=== PATIENT | female | born 1965 | race Caucasian/White ===

== ENCOUNTER 2018-01-01 11:47 | Emergency (ER) | payer BC ==
--- NOTE | 2018-01-01 12:23 | ED ---
General Adult HPI - General Chief complaint: Shortness of Breath Stated complaint: flu symptoms Time Seen by Provider: 01/01/18 11:56 Source: patient, RN notes reviewed Mode of arrival: ambulatory Limitations: no limitations - History of Present Illness Initial comments: Patient 52-year-old female presenting to the emergency room today with a chief complaint of increased cough congestion over the last few weeks. She does admit to positive sputum production it's been green in color. She states that she's had symptoms similar to this off and on over the last several weeks. She states she was on antibiotics and steroids proximate month ago. She states she woke up on December 21 when she had the flu. Patient does admit to symptoms of diarrhea. She states she still been having some symptoms but feels that the cough congestion has gotten worse. She states that time she's had some chills and bodyaches. Patient admits to a pleuritic-type pain at times feeling short of breath. Patient denies any other complaints or symptoms currently. Patient denies any recent back pain, abdominal pain, nausea or vomiting, numbness or tingling, dysuria or hematuria, constipation or diarrhea, headaches or visual changes, or any other complaints. - Related Data Home Medications Medication Instructions Recorded Confirmed Levothyroxine Sodium [Synthroid] 50 mcg PO DAILY 12/08/14 12/08/14 Norethindrone-Ethinyl Estrad 1 each PO HS 12/08/14 12/08/14 [Ortho-Novum 7-7-7-28 Tablet] Omeprazole [PriLOSEC] 20 mg PO AC-BRKFST 12/08/14 12/08/14 Sertraline [Zoloft] 100 mg PO DAILY 12/08/14 12/08/14 Previous Rx's Medication Instructions Recorded Albuterol Nebulized [Ventolin 2.5 mg INHALATION Q4H PRN 10 Days 01/01/18 Nebulized] nebu Azithromycin [Zithromax Z-pack] 0 mg PO DIRECTED #6 tab 01/01/18 predniSONE 50 mg PO DAILY #5 tab 01/01/18 Allergies Allergy/AdvReac Type Severity Reaction Status Date / Time No Known Allergies Allergy Verified 01/01/18 11:53 Review of Systems ROS Statement: Those systems with pertinent positive or pertinent negative responses have been documented in the HPI. ROS Other: All systems not noted in ROS Statement are negative. Past Medical History Past Medical History: Thyroid Disorder Additional Past Medical History / Comment(s): HEART MURMUR (TAKES NO ANTIBIOTIC) . TINNITUS BOTH EARS. IBS History of Any Multi-Drug Resistant Organisms: None Reported Past Surgical History: Uterine Ablation Additional Past Surgical History / Comment(s): THYROID GLAND REMOVED-4 YRS AGO D /T NODULE ON IT. COLONOSCOPY Past Anesthesia/Blood Transfusion Reactions: No Reported Reaction Past Psychological History: Depression Smoking Status: Never smoker Past Alcohol Use History: None Reported Past Drug Use History: None Reported - Past Family History Father Family Medical History: Cancer Additional Family Medical History / Comment(s): STOMACH. MOM HAD LIVER BILE DUCT CANCER General Exam - General Exam Comments Initial Comments: General: The patient is awake and alert, in no distress, and does not appear acutely ill. Eye: Pupils are equal, round and reactive to light, extra-ocular movements are intact. No nystagmus. There is normal conjunctiva bilaterally. No signs of icterus. Ears, nose, mouth and throat: There are moist mucous membranes and no oral lesions. Neck: The neck is supple, there is no tenderness or JVD. Cardiovascular: There is a regular rate and rhythm. No murmur, rub or gallop is appreciated. Respiratory: Lungs are clear to auscultation, respirations are non-labored, breath sounds are equal. No wheezes, stridor, rales, or rhonchi. Gastrointestinal: Soft, non-distended, non-tender abdomen without masses or organomegaly noted. There is no rebound or guarding present. No CVA tenderness. Bowel sounds are unremarkable. Musculoskeletal: Normal ROM, no tenderness. Strength 5/5. Sensation intact. Pulses equal bilaterally 2+. Neurological: A&O x 3. CN II-XII intact, There are no obvious motor or sensory deficits. Coordination appears grossly intact. Speech is normal. Skin: Skin is warm and dry and no rashes or lesions are noted. Psychiatric: Cooperative, appropriate mood & affect, normal judgment. Limitations: no limitations Course Vital Signs 01/01/18 11:53 Temperature 97.6 F Pulse Rate 88 Respiratory 16 Rate Blood Pressure 122/79 O2 Sat by Pulse 96 Oximetry Medical Decision Making - Medical Decision Making Patient's labs been reviewed. Negative cardiac enzymes. Negative d-dimer and BNP. Patient does have an 11,000 white count. Chest x-ray reviewed showing no evidence of pneumonia. Patient will be treated for bronchitis placed on steroids, antibiotics, albuterol inhaler. Patient is advised to follow-up with the family physician over the next 2 days. Advised return if symptoms increase or worsen or for any other concerns. Patient states understanding and is in agreement. - Lab Data Result diagrams: 01/01/18 12:20 01/01/18 12:20 Lab Results 01/01/18 01/01/18 01/01/18 Range/Units 12:20 12:20 12:20 WBC 11.9 H (3.8-10.6) k/uL RBC 4.80 (3.80-5.40) m/uL Hgb 14.2 (11.4-16.0) gm/dL Hct 41.8 (34.0-46.0) % MCV 87.0 (80.0-100.0) fL MCH 29.6 (25.0-35.0) pg MCHC 34.0 (31.0-37.0) g/dL RDW 12.9 (11.5-15.5) % Plt Count 372 (150-450) k/uL Neutrophils % 83 % Lymphocytes % 9 % Monocytes % 5 % Eosinophils % 2 % Basophils % 1 % Neutrophils # 9.9 H (1.3-7.7) k/uL Lymphocytes # 1.1 (1.0-4.8) k/uL Monocytes # 0.6 (0-1.0) k/uL Eosinophils # 0.2 (0-0.7) k/uL Basophils # 0.1 (0-0.2) k/uL PT (9.0-12.0) sec INR (<1.2) APTT (22.0-30.0) sec D-Dimer (<0.60) mg/L FEU Sodium 142 (137-145) mmol/L Potassium 4.4 (3.5-5.1) mmol/L Chloride 101 (98-107) mmol/L Carbon Dioxide 29 (22-30) mmol/L Anion Gap 12 mmol/L BUN 14 (7-17) mg/dL Creatinine 0.76 (0.52-1.04) mg/dL Est GFR (CKD-EPI)AfAm >90 (>60 ml/min/1.73 sqM) Est GFR (CKD-EPI)NonAf 90 (>60 ml/min/1.73 sqM) Glucose 75 (74-99) mg/dL Calcium 9.6 (8.4-10.2) mg/dL Magnesium 1.9 (1.6-2.3) mg/dL Total Bilirubin 0.4 (0.2-1.3) mg/dL AST 21 (14-36) U/L ALT 21 (9-52) U/L Alkaline Phosphatase 77 (38-126) U/L Total Creatine Kinase 52 (30-135) U/L CK-MB (CK-2) 1.0 (0.0-2.4) ng/mL CK-MB (CK-2) Rel Index 1.9 Troponin I <0.012 (0.000-0.034) ng/mL NT-Pro-B Natriuret Pep pg/mL Total Protein 8.4 H (6.3-8.2) g/dL Albumin 4.0 (3.5-5.0) g/dL 01/01/18 01/01/18 Range/Units 12:20 12:20 WBC (3.8-10.6) k/uL RBC (3.80-5.40) m/uL Hgb (11.4-16.0) gm/dL Hct (34.0-46.0) % MCV (80.0-100.0) fL MCH (25.0-35.0) pg MCHC (31.0-37.0) g/dL RDW (11.5-15.5) % Plt Count (150-450) k/uL Neutrophils % % Lymphocytes % % Monocytes % % Eosinophils % % Basophils % % Neutrophils # (1.3-7.7) k/uL Lymphocytes # (1.0-4.8) k/uL Monocytes # (0-1.0) k/uL Eosinophils # (0-0.7) k/uL Basophils # (0-0.2) k/uL PT 10.0 (9.0-12.0) sec INR 1.0 (<1.2) APTT 23.6 (22.0-30.0) sec D-Dimer 0.30 (<0.60) mg/L FEU Sodium (137-145) mmol/L Potassium (3.5-5.1) mmol/L Chloride (98-107) mmol/L Carbon Dioxide (22-30) mmol/L Anion Gap mmol/L BUN (7-17) mg/dL Creatinine (0.52-1.04) mg/dL Est GFR (CKD-EPI)AfAm (>60 ml/min/1.73 sqM) Est GFR (CKD-EPI)NonAf (>60 ml/min/1.73 sqM) Glucose (74-99) mg/dL Calcium (8.4-10.2) mg/dL Magnesium (1.6-2.3) mg/dL Total Bilirubin (0.2-1.3) mg/dL AST (14-36) U/L ALT (9-52) U/L Alkaline Phosphatase (38-126) U/L Total Creatine Kinase (30-135) U/L CK-MB (CK-2) (0.0-2.4) ng/mL CK-MB (CK-2) Rel Index Troponin I (0.000-0.034) ng/mL NT-Pro-B Natriuret Pep 116 pg/mL Total Protein (6.3-8.2) g/dL Albumin (3.5-5.0) g/dL Disposition Clinical Impression: Acute bronchitis Disposition: HOME SELF-CARE Condition: Good Instructions: Acute Bronchitis (ED) Additional Instructions: Please use medication as discussed. Please follow-up with family doctor in the next 2 days of symptoms have not improved. Please return to emergency room if the symptoms increase or worsen or for any other concerns. Prescriptions: Albuterol Nebulized [Ventolin Nebulized] 2.5 mg INHALATION Q4H PRN 10 Days nebu PRN Reason: Cough Azithromycin [Zithromax Z-pack] 0 mg PO DIRECTED #6 tab predniSONE 50 mg PO DAILY #5 tab Referrals: Carlos Alberto Ford DO [Primary Care Provider] - 1-2 days Time of Disposition: 13:18
[2018-01-01 12:32] LABS: Basophils # (A) 0.1 k/uL (0-0.2); Basophils % (A) 1 %; Eosinophils # (A) 0.2 k/uL (0-0.7); Eosinophils % (A) 2 %; HCT 41.8 % (34.0-46.0); HGB 14.2 gm/dL (11.4-16.0); Lymphocytes # (A) 1.1 k/uL (1.0-4.8); Lymphocytes % (A) 9 %; MCH 29.6 pg (25.0-35.0); Mean Platelet Volume 6.8; Monocytes # (A) 0.6 k/uL (0-1.0); Monocytes % (A) 5 %; Neutrophils # (A) 9.9 k/uL (1.3-7.7); Neutrophils % (A) 83 %; Platelet Count 372 k/uL (150-450); RDW 12.9 % (11.5-15.5); WBC 11.9 k/uL (3.8-10.6)
[2018-01-01 12:41] LABS: ALT 21 U/L (9-52); AST 21 U/L (14-36); Alkaline Phosphatase 77 U/L (38-126); Anion Gap 12 mmol/L; Blood Urea Nitrogen 14 mg/dL (7-17); Calcium 9.6 mg/dL (8.4-10.2); Carbon Dioxide 29 mmol/L (22-30); Chloride 101 mmol/L (98-107); Glucose 75 mg/dL (74-99); Magnesium 1.9 mg/dL (1.6-2.3); Potassium 4.4 mmol/L (3.5-5.1); Sodium 142 mmol/L (137-145); Total Bilirubin 0.4 mg/dL (0.2-1.3); Total Protein 8.4 g/dL (6.3-8.2)
[2018-01-01 12:51] LABS: Creatine Kinase 52 U/L (30-135)
--- NOTE | 2018-01-01 12:52 | XR ---
EXAMINATION TYPE: XR chest 2V DATE OF EXAM: 01/01/2018 COMPARISON: NONE TECHNIQUE: PA and lateral views submitted. HISTORY: Cough and congestion FINDINGS: The lungs are clear and there is no pneumothorax, pleural effusion, or focal pneumonia. Apical pleu ral thickening bilaterally. No overt failure. Curvature and degenerative change of the spine. Arthrop athy of the right shoulder. IMPRESSION: 1. No acute process.
[2018-01-01 12:54] LABS: D-Dimer 0.3 mg/L FEU (<0.60); Partial Thromboplastin Time 23.6 sec (22.0-30.0)
[2018-01-01 13:04] LABS: Troponin I <0.012 ng/mL (0.000-0.034)
[2018-01-01 13:30] VITALS: BP 130/64; PULSE 75; RESP 18; TEMP 98.5
== END 2018-01-01 13:29 | disposition home or self-care (01) ==
LOC: EC 11:47
DX: J20.9 Acute bronchitis, unspecified (principal); E07.9 Disorder of thyroid, unspecified; K58.9 Irritable bowel syndrome, unspecified; R19.7 Diarrhea, unspecified; F32.9 Major depressive disorder, single episode, unspecified; Z79.3 Long term (current) use of hormonal contraceptives; Z79.899 Other long term (current) drug therapy
CPT/HCPCS: 36415; 71046; 80053; 82550; 82553; 83735; 83880; 84484; 85025; 85379; 85610; 85730; 93005; 99285

== ENCOUNTER → 2018-05-30 | Outpatient (CLI) | payer BC | END | disposition home or self-care (01) | LOC: LABWHC1 15:18 | PROVIDERS: ATTEND Otolaryngology | DX: J30.89 Other allergic rhinitis (principal) | CPT/HCPCS: 36415; 86001 ==

== ENCOUNTER → 2019-04-16 | Outpatient (CLI) | payer BC ==
--- NOTE | 2019-04-16 15:13 | US ---
EXAMINATION TYPE: US thyroid st tissue head/neck DATE OF EXAM: 04/16/2019 COMPARISON: NONE CLINICAL HISTORY: R22.1 Mass and lump. Palpable painful lump left neck x couple weeks, difficulty swa llowing, history of left thyroidectomy. Left neck: 1.7 x 0.4 x 1.1cm hypoechoic vascular structure seen at patient's palpable area just left of midline, possible lymph node Right neck for comparison: appears wnl Isthmus: 0.9 x 0.5 x 0.8cm hypoechoic vascular nodule IMPRESSION: 1. Lymph node left neck 2. Subcentimeter nodule is noted thyroid
== END | disposition home or self-care (01) ==
LOC: RADUSWWP 08:50
PROVIDERS: ATTEND Family Medicine
DX: E04.1 Nontoxic single thyroid nodule (principal)
CPT/HCPCS: 76536

== ENCOUNTER → 2019-05-20 | Outpatient (CLI) | payer BC ==
[2019-05-20 08:58] VITALS: BP 122/82; PULSE 69; RESP 18; TEMP 98; BMI 34.3
--- NOTE | 2019-05-20 09:50 | P.HPOB ---
History of Present Illness H&P Date: 05/20/19 Chief Complaint: The patient is here for her routine gynecologic exam and ma mmogram. This is a 54-year-old with an LMP of December 2017. The patient is here to establish with this office. It has been about 2 years since her last pelvic exam. She has been experiencing hot flashes since her menstrual periods stopped. They seem to be less intense now, but more frequent. She is without gynecologic complaints. Review of Systems The patient has gained 20 pounds over the last year. She denies respiratory, cardiac, or G.I. problems. Past Medical History Past Medical History: GERD/Reflux, Sleep Apnea/CPAP/BIPAP, Thyroid Disorder Additional Past Medical History / Comment(s): HEART MURMUR (TAKES NO ANTIBIOTIC), TINNITUS BOTH EARS, IBS, hypothyroidism. 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 History of Any Multi-Drug Resistant Organisms: None Reported Past Surgical History: Uterine Ablation Additional Past Surgical History / Comment(s): Left partial thyroidectomy. COLONOSCOPY 2005, upper endoscopy 2013. 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 - Past Family History Father Family Medical History: Cancer Additional Family Medical History / Comment(s): STOMACH cancer. Mother Family Medical History: Cancer, Diabetes Mellitus Additional Family Medical History / Comment(s): LIVER BILE DUCT CANCER Medications and Allergies Home Medications Medication Instructions Recorded Confirmed Type Levothyroxine Sodium [Synthroid] 50 mcg PO DAILY 12/08/14 05/20/19 History Omeprazole [PriLOSEC] 20 mg PO AC-BRKFST 12/08/14 05/20/19 History Cholecalciferol [Vitamin D3 (25 1,000 unit PO DAILY 05/20/19 05/20/19 History Mcg = 1000 Iu)] OXcarbazepine [Trileptal] 300 mg PO BID 05/20/19 05/20/19 History [place]-3 Fatty Acids [[place]-3] 1,000 mg PO DAILY 05/20/19 05/20/19 History Vortioxetine Hydrobromide 20 mg PO HS 05/20/19 05/20/19 History [Trintellix] Allergies Allergy/AdvReac Type Severity Reaction Status Date / Time No Known Allergies Allergy Verified 05/20/19 08:50 Exam Vital Signs Temp Pulse Resp BP Pulse Ox 05/20/19 08:55 98.0 F 69 18 122/82 96 Intake and Output 05/19/19 05/20/19 05/20/19 22:59 06:59 14:59 Other: Weight 96.615 kg Height 5'6", weight 213 pounds, BMI 34.4. This is a well-developed well-nourished white female who is alert and oriented times 3 in no acute distress. HEENT: Within normal limits. NECK: Supple without mass or thyromegaly. CHEST AND LUNGS: Clear to auscultation. HEART: Regular rate and rhythm. BREASTS: Are without mass or discharge. AXILLARY EXAM: Negative for adenopathy. BACK: Negative for CVA tenderness. ABDOMEN: Soft, nontender, without palpable masses. PELVIC EXAM: Normal external genitalia with minimal atrophy. Cervix and vagina appear normal with minimal atrophy. There is no unusual discharge. There is no evidence of prolapse. The uterus is midposition, nongravid size and nontender. There are no palpable adnexal masses or tenderness. RECTAL EXAM: rectovaginal exam is negative for mass or tenderness and is negative for occult blood. EXTREMITIES: Nontender. IMPRESSION: 1. 54-year-old menopausal female with normal gynecologic exam. 2. Mild vasomotor symptoms. PLAN: 1. Pap smear was performed. 2. Self breast awareness was discussed with the patient. 3. Screening mammogram will be done today. 4. Osteoporosis prevention was discussed. I have stressed the importance of adequate calcium, vitamin D and regular exercise. Recommended amounts of calcium and vitamin D were also discussed. 5. I have recommended screening colonoscopy since it has been about 13 years since her last one. She will see if she can arrange colorectal screening through Dr. Stevenson's office. 6. We have discussed weight control and the importance of good nutrition, regular meals and regular exercise. 7. She was advised to return in one year for her annual well woman exam.
--- NOTE | 2019-05-21 09:57 | MM ---
Reason for exam: screening (asymptomatic). Last mammogram was performed 2 years and 10 months ago. Physical Findings: A clinical breast exam by your physician is recommended on an annual basis and results should be correlated with mammographic findings. MG Screening Mammo w CAD Bilateral CC and MLO view(s) were taken. Prior study comparison: July 20, 2016, mammogram, performed at [facility]. December 07, 2014, mammogram, performed at [facility]. The breast tissue is heterogeneously dense. This may lower the sensitivity of mammography. There is no discrete abnormality. No significant changes when compared with prior studies. ASSESSMENT: Negative, BI-RAD 1 RECOMMENDATION: Routine screening mammogram of both breasts in 1 year.
--- NOTE | 2019-05-27 17:20 | P.PN ---
Progress Note - Text Progress Note Date: 05/27/19 OUTPATIENT FOLLOW-UP NOTE TEST(S)/RESULTS: test results from 05/20/2019 include negative Pap smear and benign mammogram. METHOD OF NOTIFICATION: a message with these results was left on the patient's voice mail. PATIENT COMMENTS: DIAGNOSIS: negative Pap smear and benign mammogram. DISCUSSION: PLAN: the patient is to return in one year for her annual well woman exam.
== END | disposition home or self-care (01) ==
LOC: WWCWWP 08:36
PROVIDERS: ATTEND Obstetrics & Gynecology
DX: Z12.31 Encounter for screening mammogram for malignant neoplasm of breast (principal)
CPT/HCPCS: 77067

== ENCOUNTER → 2019-08-27 | Outpatient (CLI) | payer BC ==
--- NOTE | 2019-08-27 10:54 | FL ---
EXAMINATION TYPE: FL barium swallow DATE OF EXAM: 08/27/2019 CLINICAL HISTORY: Reflux for years on medication recently switched with some improvement. Persistent increased secretions. Known thyroid nodule. History of most recent scope roughly 6 years ago per dena ent. TECHNIQUE: A double contrast esophagram is performed utilizing air and barium. A total of 32 second s of fluoroscopic time was utilized during procedure. 39 spot images are saved. COMPARISON: None FINDINGS: The esophagus shows normal motility and emptying into the stomach. No diverticulum or stri cture noted. Small moderate size sliding-type hiatal hernia is identified throughout the study. No si gnificant gastroesophageal reflux was seen during real time performance of this study. IMPRESSION: Small to moderate-sized sliding-type hiatal hernia. Images and findings discussed with patient. Discussion included laparoscopic Mauro fundoplication morris ramón. Patient seemed interested. Consider surgical referral for further discussion and evaluation.
== END | disposition home or self-care (01) ==
LOC: RADUSWWP 10:03
PROVIDERS: ATTEND Otolaryngology
DX: K44.9 Diaphragmatic hernia without obstruction or gangrene (principal); K21.0 Gastro-esophageal reflux disease with esophagitis
CPT/HCPCS: 74220

== ENCOUNTER → 2019-10-13 | Outpatient (CLI) | payer BC ==
--- NOTE | 2019-10-14 08:34 | US ---
EXAMINATION TYPE: US thyroid st tissue head/neck DATE OF EXAM: 10/13/2019 COMPARISON: 04/16/2019 CLINICAL HISTORY: R22.1 mass of neck. Follow up to previous Within the left neck, there is a hypoechoic area visualized measuring 0.9 x 0.2 x 0.5 cm, probable ly mph node. The largest lymph node on the left in the prior exam measured 1.7 x 0.4 x 1.1 cm. Thyroid n odule visualized in isthmus measuring 0.9 x 0.5 x 0.7 cm. This is again hypervascular. This previousl y measured 0.9 x 0.5 x 0.8 cm on the exam of 04/16/2018. IMPRESSION: 1. Decrease in size of the previously measured palpable lymph node. 2. No significant interval growth of the hypervascular subcentimeter thyroid nodule. Continued survei llance is recommended for this nodule.
== END | disposition home or self-care (01) ==
LOC: RADUSWWP 16:02
PROVIDERS: ATTEND Family Medicine
DX: E04.1 Nontoxic single thyroid nodule (principal); R59.9 Enlarged lymph nodes, unspecified
CPT/HCPCS: 76536

== ENCOUNTER → 2020-06-01 | Outpatient (CLI) | payer BC ==
[2020-06-01 16:06] VITALS: BP 144/84; PULSE 70; RESP 16; TEMP 98.7
--- NOTE | 2020-06-01 16:56 | P.HPOB ---
History of Present Illness H&P Date: 06/01/20 Chief Complaint: The patient is here for her routine gynecologic exam. This is a 55-year-old 012 with an LMP of December 2017. The patient denies any postmenopausal bleeding and is without gynecologic complaints. She still has some hot flashes but they seem to be "mellowing". Review of Systems The patient has gained 16 pounds over the last year. She denies respiratory, cardiac, or G.I. problems. Past Medical History Past Medical History: GERD/Reflux, Sleep Apnea/CPAP/BIPAP, Thyroid Disorder Additional Past Medical History / Comment(s): HEART MURMUR (TAKES NO ANTIBIOTIC) , TINNITUS BOTH EARS, IBS, hypothyroidism. 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 History of Any Multi-Drug Resistant Organisms: None Reported Past Surgical History: Uterine Ablation Additional Past Surgical History / Comment(s): Left partial thyroidectomy. COLONOSCOPY 2005, upper endoscopy 2013. 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 - Past Family History Mother Family Medical History: Cancer, Diabetes Mellitus Additional Family Medical History / Comment(s): LIVER BILE DUCT CANCER Father Family Medical History: Cancer Additional Family Medical History / Comment(s): STOMACH cancer. Medications and Allergies Home Medications Medication Instructions Recorded Confirmed Type Levothyroxine Sodium [Synthroid] 50 mcg PO DAILY 12/08/14 06/01/20 History Cholecalciferol [Vitamin D3 (25 1,000 unit PO DAILY 05/20/19 06/01/20 History Mcg = 1000 Iu)] OXcarbazepine [Trileptal] 300 mg PO TID 05/20/19 06/01/20 History [place]-3 Fatty Acids [[place]-3] 1,000 mg PO DAILY 05/20/19 06/01/20 History Vortioxetine Hydrobromide 20 mg PO HS 05/20/19 06/01/20 History [Trintellix] Pantoprazole Sodium [Protonix] 40 mg PO DAILY 10/17/19 06/01/20 History Allergies Allergy/AdvReac Type Severity Reaction Status Date / Time No Known Allergies Allergy Verified 10/17/19 11:51 Exam Vital Signs Temp Pulse Resp BP Pulse Ox 06/01/20 15:55 98.7 F 70 16 144/84 97 Intake and Output 06/01/20 06/01/20 06/01/20 06:59 14:59 22:59 Other: Weight 103.873 kg Height 5 feet 6 inches, weight 229 pounds, BMI 37.0. This is a well-developed well-nourished heavyset white female who is alert and oriented times 3 in no acute distress. HEENT: Within normal limits. NECK: Supple without mass or thyromegaly. CHEST AND LUNGS: Clear to auscultation. HEART: Regular rate and rhythm. BREASTS: Are without mass or discharge. AXILLARY EXAM: Negative for adenopathy. BACK: Negative for CVA tenderness. ABDOMEN: Soft, nontender, without palpable masses. PELVIC EXAM: Normal external genitalia with mild atrophy. Cervix and vagina appear normal with minimal atrophy. There is no unusual discharge. There is no evidence of prolapse. The uterus is midposition, nongravid size and nontender. There are no palpable adnexal masses or tenderness. Bimanual examination is somewhat limited secondary to her size. RECTAL EXAM: Rectovaginal exam is negative for mass or tenderness and is negative for occult blood. EXTREMITIES: Nontender. IMPRESSION: 1. 55-year-old menopausal female with mild vasomotor symptoms and normal gynecologic exam. PLAN: 1. Pap smear was deferred since she had a normal one on 05/20/2019. 2. Self breast awareness was discussed with the patient. 3. Screening mammogram is scheduled for 06/21/2020 and the order slip was given to the patient for this. 4. Osteoporosis prevention was discussed. I have stressed the importance of adequate calcium, vitamin D and regular exercise. Recommended amounts of calcium and vitamin D were also discussed. 5. Screening colonoscopy had to be rescheduled because of the Covid pandemic. She plans to do this in the near future. She states she will be doing this through Dr. Polo with an upper endoscopy. 6. She was advised to return in one year for her annual well woman exam.
== END | disposition home or self-care (01) ==
LOC: WWCWWP 15:52
PROVIDERS: ATTEND Obstetrics & Gynecology
DX: Z53.9 Procedure and treatment not carried out, unspecified reason (principal)

== ENCOUNTER → 2020-06-21 | Outpatient (CLI) | payer BC ==
--- NOTE | 2020-06-23 09:40 | MM ---
Reason for exam: screening (asymptomatic). Last mammogram was performed 1 year and 1 month ago. History: Patient is postmenopausal. Physical Findings: A clinical breast exam by your physician is recommended on an annual basis and results should be correlated with mammographic findings. MG Screening Mammo w CAD Bilateral CC and MLO view(s) were taken. Prior study comparison: May 20, 2019, bilateral MG screening mammo w CAD. July 20, 2016, mammogram, performed at [facility]. The breast tissue is heterogeneously dense. This may lower the sensitivity of mammography. No significant changes when compared with prior studies. ASSESSMENT: Benign, BI-RAD 2 RECOMMENDATION: Routine screening mammogram of both breasts in 1 year.
== END | disposition home or self-care (01) ==
LOC: RADMAMWWP 16:01
PROVIDERS: ATTEND Obstetrics & Gynecology
DX: Z12.31 Encounter for screening mammogram for malignant neoplasm of breast (principal)
CPT/HCPCS: 77067

== ENCOUNTER → 2020-06-25 | Outpatient (CLI) | payer BC ==
--- NOTE | 2020-06-26 06:44 | US ---
EXAMINATION TYPE: US thyroid st tissue head/neck DATE OF EXAM: 06/25/2020 COMPARISON: US 2019 CLINICAL HISTORY: E04.1 Thyroid nodule. Thyroid nodule, left thyroidectomy GLAND SIZE: Right Lobe: 4.5 x 1.4 x 1.5 cm Overall Parenchyma: homogenous Left Lobe: surgically absent Isthmus Thickness: 0.4 cm NODULES RIGHT: # of nodules measured on right: 0 LEFT: # of nodules measured on left: 0 ISTHMUS: # of nodules measured in the isthmus: 1 1. 0.9 X 0.4 x 0.7 cm hypoechoic mixed nodule at the isthmus with well-defined margins. This nodule is wider than tall and shows intranodular vascularity. Prior size: 0.9 x 0.5 x 0.7 cm Bilateral neck scanned, no evidence of lymphadenopathy. Persistent absent left thyroid lobe. Homogeneous normal-sized right thyroid lobe. Stable 9 mm isthmus nodule. IMPRESSION: As above. No new greater than 1 cm solid nodules or new suspicious recurrent tissue ident ified.
== END | disposition home or self-care (01) ==
LOC: RADUSWWP 16:53
PROVIDERS: ATTEND Family Medicine
DX: E04.1 Nontoxic single thyroid nodule (principal)
CPT/HCPCS: 76536

== ENCOUNTER → 2020-07-30 | Outpatient (CLI) | payer BC ==
--- NOTE | 2020-07-30 08:25 | US ---
EXAMINATION TYPE: US abdomen complete DATE OF EXAM: 07/30/2020 COMPARISON: NONE CLINICAL HISTORY: R10.9 ABD PAIN. EXAM MEASUREMENTS: Liver Length: 13.6 cm Gallbladder Wall: 0.4 cm CBD: 0.6 cm Spleen: 11.5 cm Right Kidney: 10.2 x 4.1 x 5.4 cm Left Kidney: 10.5 x 4.3 x 4.8 cm Pancreas: Obscured by bowel gas Liver: Increased attenuation Gallbladder: stones, some probable sludge vs. gravel Evidence for sonographic Ruby's sign: no CBD: wnl Spleen: wnl Right Kidney: Inferior pole obscured by bowel gas, no hydronephrosis or masses seen Left Kidney:Inferior pole obscured by bowel gas, no hydronephrosis or masses seen Upper IVC: wnl Abd Aorta: some portions obscured by bowel gas, otherwise wnl The visualized liver is slightly heterogeneous without suspicious mass or ductal dilatation. Likely m ild diffuse fatty infiltration. The intrahepatic portion of the IVC and visualized abdominal aorta ar e within normal limits. Suboptimal evaluation of pancreas on images saved due to overlying bowel gas. Gallbladder shows mobile shadowing gallstone. No surrounding fluid or wall thickening. Sonographic M urphy sign negative. The spleen is normal in size. Kidneys are symmetric and free of hydronephrosis. No renal lesions are seen on images saved. IMPRESSION: Suboptimal study without acute finding evident.
== END | disposition home or self-care (01) ==
LOC: RADUSWWP 07:31
PROVIDERS: ATTEND Family Medicine
DX: R10.9 Unspecified abdominal pain (principal)
CPT/HCPCS: 76700

== ENCOUNTER → 2020-07-30 | Outpatient (CLI) | payer BC ==
--- NOTE | 2020-07-30 14:00 | CT ---
EXAMINATION TYPE: CT abdomen wo con DATE OF EXAM: 07/30/2020 COMPARISON: Abdominal ultrasound 07/30/2020 HISTORY: Elevated liver enzymes, abnormal US CT DLP: 567.7 mGycm Automated exposure control for dose reduction was used. TECHNIQUE: Helical acquisition of images was performed from the lung bases through the top of iliac crest to include entire abdomen. CONTRAST: Performed without Oral Contrast and without IV contrast. FINDINGS: LUNG BASES: 2 mm pulmonary nodules of the left lower lobe (4:10, 4:11). No pleural effusion. No peric ardial effusion. LIVER/GB: There is normal attenuation of the liver. There is a simple 1.2 cm hepatic cyst of the righ t dome (3:11). There is no intrahepatic or extrahepatic biliary ductal dilatation. PANCREAS: No peripancreatic stranding or fluid. SPLEEN: Not enlarged. ADRENALS: Normal. KIDNEYS: No hydronephrosis or nephrolithiasis. BOWEL: No bowel obstruction or thickening of the visualized loops. LYMPH NODES: No lymphadenopathy. OSSEOUS STRUCTURES: Degenerative changes of the spine. FREE AIR: No free air is visualized. OTHER: No abdominal aortic aneurysm. IMPRESSION: 1. LIVER IS NORMAL IN ATTENUATION. BENIGN HEPATIC CYST OF THE RIGHT DOME. 2. NO INTRAHEPATIC OR EXTRAHEPATIC BILIARY DUCTAL DILATATION. 3. 2 MM PULMONARY NODULES. PER [facility] 2017 GUIDELINES, IF THE PATIENT IS LOW RISK, NO ADDITIONAL FOLLOW-UP IS RECOMMENDED. IF THE PATIENT IS HIGH RISK, OPTIONAL CT CAN BE PERFORMED IN ONE YEAR.
== END | disposition home or self-care (01) ==
LOC: RADCTMAIN 13:12
PROVIDERS: ATTEND Family Medicine
DX: K76.89 Other specified diseases of liver (principal)
CPT/HCPCS: 74150

== ENCOUNTER → 2024-07-14 | Outpatient (CLI) | payer BC ==
--- NOTE | 2024-07-15 12:10 | MM ---
Reason for Exam: Screening (asymptomatic). Last mammogram was performed 1 year(s) and 4 month(s) ago. Patient History: Menarche at age 11. First Full-Term at age 17. Postmenopausal. Niece had breast cancer under age 50. Risk Values: Anila 5 year model risk: 1.1%. NCI Lifetime model risk: 5.2%. Prior Study Comparison: 07/20/2016 [facility] Mamm[facility], [facility] . 05/20/2019 Bilateral Screening Mammogram, [facility]. 06/21/2020 Bilateral Screening Mammogram, [facility]. 03/19/2023 Bilateral Screening Mammogram, [facility]. Tissue Density: The breasts are heterogeneously dense, which may obscure small masses. Findings: Analyzed By CAD. Symmetric density lower inner margin right breast. Spot compression views suggested. No suspicious calcifications. Overall Assessment: Incomplete: need additional imaging evaluation, BI-RAD 0 Management: Diagnostic Mammogram of the right breast. . Patient should continue monthly self-breast exams. A clinical breast exam by your physician is recommended on an annual basis. This exam should not preclude additional follow-up of suspicious palpable abnormalities. Note on Anila scores and lifetime risk: 1. A Anila score greater than 3% is considered moderate risk. If this is the case, consider specialist referral to assess eligibility for a risk reducing agent. 2. If overall lifetime risk for the development of breast cancer is 20% or higher, the patient may qualify for future screening with alternating mammogram and breast MRI. [facility], , 07/15/2024 12:07 PM. Electronically signed and approved by: Gaurav Pittman M.D. Radiologis
== END | disposition home or self-care (01) ==
LOC: RADMAMWWP 12:55
PROVIDERS: ATTEND Obstetrics & Gynecology
CPT/HCPCS: 77063; 77067

== ENCOUNTER → 2024-08-08 | Outpatient (CLI) | payer BC ==
--- NOTE | 2024-08-10 17:34 | MM ---
Reason for Exam: Additional evaluation requested from abnormal screening. Last screening mammogram was performed less than 1 month ago. Patient History: Menarche at age 11. First Full-Term at age 17. Postmenopausal. Niece had breast cancer under age 50. Risk Values: Anila 5 year model risk: 1.1%. NCI Lifetime model risk: 5.2%. Tissue Density: Right: There are scattered areas of fibroglandular density. Findings: Analyzed By CAD. Pattern appears stable. Focal asymmetry is in the inner lower aspect mid left breast. Under compression this area appears to largely disperse. Underlying focal asymmetry appears stable from the comparison study, short-term follow-up recommended. Overall Assessment: Probably benign, BI-RAD 3 Management: Diagnostic Mammogram of the right breast in 6 months. A negative mammogram report should not preclude additional follow up of suspicious palpable abnormalities. Patient should continue monthly self breast exam. A clinical breast exam by your physician is recommended on an annual basis and results should be correlated with mammographic findings. Note on Anila scores and lifetime risk: 1. A Anila score greater than 3% is considered moderate risk. If this is the case, consider specialist referral to assess eligibility for a risk reducing agent. 2. If overall lifetime risk for the development of breast cancer is 20% or higher, the patient may qualify for future screening with alternating mammogram and breast MRI. [facility], , 08/10/2024 5:31 PM. Electronically signed and approved by: Carlos Farnsworth D.O. Radiologis
== END | disposition home or self-care (01) ==
LOC: RADMAMWWP 14:36
PROVIDERS: ATTEND Obstetrics & Gynecology
DX: R92.8 Other abnormal and inconclusive findings on diagnostic imaging of breast (principal); R92.323 Mammographic fibroglandular density, bilateral breasts; Z78.0 Asymptomatic menopausal state; Z80.3 Family history of malignant neoplasm of breast
CPT/HCPCS: 77061; 77065